=== PATIENT | male | born 1995 | race Native Hawaiian/Other Pacific Islander ===

== ENCOUNTER 2025-06-17 10:15 | Emergency (ER) | payer BC, SELFPAY ==
[2025-06-17] VITALS (7 sets, daily range): BP systolic 117–154; BP diastolic 69–89; PULSE 74–79; RESP 16–18; O2SAT 94–98
--- OUTSIDE RECORDS SUMMARY | 2025-06-17 10:25 | XMS_ITS | Encounter Summary ---
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
--- OUTSIDE RECORDS SUMMARY | 2025-06-17 10:25 | XMS_ITS | Encounter Summary ---
Author Organization [facility] Address [address] [place] [address] Care Team Providers Care Back Closer Name Role Phone Farooq Gore MD Primary Care Provider Encounter Details Date Type Department Care Team (Latest Contact Info) Description 08/22/2006 Outpatient Historical [facility] Medicine [address] [phone] Khushi Finn MD [facility] [place], [place] [id number] Contact Dermatitis and Other Eczema, due to Unspecified Cause (Primary Dx) Social History Tobacco Use Types Packs/Day Years Used Date Smoking Tobacco: Never Assessed Sex and Gender Information Value Date Recorded Sex Assigned at Not on file 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
--- OUTSIDE RECORDS SUMMARY | 2025-06-17 10:25 | XMS_ITS | Clinical Summary ---
Author Organization [facility] Address [address] [facility] Attn: Epic Prelude ADT THAO KNAPP [address] Care Team Providers Care Manager Desktop Name Role Phone Farooq Gore MD Primary Care Provider [phone] Allergies Active Allergy Reactions Criticality Noted Date Comments Amoxicillin-Pot Clavulanate Hives High 06/28/20 13 Medications No known medications Active Problems No known active problems Social History Tobacco Use Types Packs/Day Years Used Date Smoking Tobacco: Never Smokeless Tobacco: Current Alcohol Use Standard Drinks/Week Comments Not Asked 0 (1 standard drink = 0.6 oz pur e alcohol) Sex and Gender Information Value Date Recorded Sex Assigned at Not on file Legal Sex Male 2:05 AM IRRIGATOR VALVE PIPE Gender Identity Not on file Sexual Orientation Not on file Last Filed Vital Signs Vital Sign Reading Time Taken Comments Blood Pressure 125/86 10/05/2021 1:40 PM IRRIGATOR VALVE PIPE Pulse 88 10/05/2021 1:40 PM IRRIGATOR VALVE PIPE Temperature 36.8 C (98.2 F) 10/05/2021 1:40 PM IRRIGATOR VALVE PIPE Respiratory Rate 16 10/05/2021 1:40 PM IRRIGATOR VALVE PIPE Oxygen Saturation 98% 10/05/2021 1:40 PM IRRIGATOR VALVE PIPE Inhaled Oxygen Concentration - - Weight 120.2 kg (265 lb) 10/05/2021 1:40 PM IRRIGATOR VALVE PIPE Height 190.5 cm (6' 3 ) 10/05/2021 1:40 PM IRRIGATOR VALVE PIPE Body Mass Index 33.12 10/05/2021 1:40 PM IRRIGATOR VALVE PIPE Plan of Treatment Health Maintenance Due Date Last Done Comments HPV VACCINES (1 - Male 3-dose series) 2008 DTAP/TDAP/TD VACCINES (1 - Tdap) 2012 HEPATITIS B VACCINES (1 of 3 - 19+ 3-dose series) 06/04 INFLUENZA VACCINE (#1) 2025 Insurance OUT OF STATE Care Teams Manager Desktop Relationship Specialty Start Date End Date Farooq Gore MD [address] [place] [address] PCP - General Family Practice 10/11/10
--- OUTSIDE RECORDS SUMMARY | 2025-06-17 10:25 | XMS_ITS | Encounter Summary ---
Author Organization [facility] Address [address] [place] [address] Care Team Providers Care Wool Batting Worker Name Role Phone Farooq Gore MD Primary Care Provider Encounter Details Date Type Department Care Team (Latest Contact Info) Description 07/16/2006 Outpatient Historical [facility] Medicine [address] [phone] Luca Leary, SAND [employer] GRAVEL PLANT OPERATOR [address] [place] [address] Other and Unspecified Hyperlipidemia (Primary Dx) Social History Tobacco Use Types Packs/Day Years Used Date Smoking Tobacco: Never Assessed Sex and Gender Information Value Date Recorded Sex Assigned at Not on file 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
--- OUTSIDE RECORDS SUMMARY | 2025-06-17 10:25 | XMS_ITS | Clinical Summary ---
Author Organization [facility] Address [address] [place] [address] Care Team Providers Care Sports Psychologist Name Role Phone Farooq Gore MD Primary Care Provider Allergies Active Allergy Reactions Criticality Noted Date Comments Amoxicillin-Pot Clavulanate Hives High 06/28/20 13 Medications EPINEPHrine (EPIPEN) 0.3 mg/0.3 mL IM PnIj Inject 0.3 mL by intramuscular injection see administration instructions. 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 Gender Identity Not on file Sexual Orientation Not on file Last Filed Vital Signs Vital Sign Reading Time Taken Comments Blood Pressure 112/76 06/28/2013 10:04 AM CDT Pulse - - Temperature - - Respiratory Rate - - Oxygen Saturation - - Inhaled Oxygen Concentration - - Weight 118.8 kg (262 lb) 06/28/2013 10:04 AM CDT Height 182.9 cm (6') 06/28/2013 10:04 AM CDT Body Mass Index 35.53 06/28/2013 10:04 AM CDT Plan of Treatment Health Maintenance Due Date Last Done Comments HPV VACCINES (1 - Male 3-dose series) 2008 DTAP/TDAP/TD VACCINES (1 - Tdap) 2012 HEPATITIS B VACCINES (1 of 3 - 19+ 3-dose series) 06/04 INFLUENZA VACCINE (#1) 2025 Insurance BS Care Teams Sports Psychologist Relationship Specialty Start Date End Date Farooq Gore MD PCP - General Family Practice 10/11/10
--- OUTSIDE RECORDS SUMMARY | 2025-06-17 10:25 | XMS_ITS | Encounter Summary ---
Author Organization [facility] Address [address] [place] [address] Care Team Providers Care Creative Manager Name Role Phone Fraooq Gore MD Primary Care Provider Encounter Details Date Type Department Care Team (Latest Contact Info) Description 08/24/2007 Outpatient Historical [facility] Medicine [address], [place] [address] Farooq Gore MD [address] [place] [phone] Routine Medical Exam (Primary Dx) Social History Tobacco Use Types Packs/Day Years Used Date Smoking Tobacco: Never Assessed Sex and Gender Information Value Date Recorded Sex Assigned at Not on file 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
--- OUTSIDE RECORDS SUMMARY | 2025-06-17 10:25 | XMS_ITS | Encounter Summary ---
Author Organization [facility] Address [address] [place] [address] Care Team Providers Care Reconsignment Clerk Name Role Phone Farooq Gore MD Primary Care Provider Encounter Details Date Type Department Care Team (Latest Contact Info) Description 07/09/2006 Outpatient Historical [facility] Medicine [address] [phone] Luca Leary, ANESTHESIOLOGIST [address] [place] [address] Allergic Rhinitis, Cause Unspecified (Primary Dx) Social History Tobacco Use Types Packs/Day Years Used Date Smoking Tobacco: Never Assessed Sex and Gender Information Value Date Recorded Sex Assigned at Not on file 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
--- NOTE | 2025-06-17 10:39 | CT_ITS ---
WS: [id number] CT CERVICAL TRAUMA TECHNIQUE: Noncontrast CT of the cervical spine with coronal and sagittal reformatted images. CLINICAL INFORMATION: head and neck injury COMPARISON: None. DLP: 2180.[address] scans at [facility] use at least one of these dose optimization techniques: automated exposure control; mA and/or kV adjustment per patient size (includes targeted exams where dose is matched to clinical indication); or iterative reconstruction. FINDINGS: Straightening of the normal cervical lordosis. Normal craniocervical junction. Normal C1-C2 articulation. Dens is normal in appearance. Normal occipital condyles. No high-grade spinal canal narrowing. Normal C1 ring. No evidence of acute fracture or dislocation. Normal prevertebral soft tissues. Mastoids air cells are well aerated. CT/CT cervical spin wo con* [id number] IMPRESSION: No evidence of acute fracture or dislocation. Notified HUBER James at 06/17/2025 11:[address] findings also jane feng
--- NOTE | 2025-06-17 10:39 | CT_ITS ---
WS: [id number] CT HEAD TECHNIQUE: Noncontrast CT of the head obtained from the skullbase to the vertex. CLINICAL INFORMATION: head and neck injury COMPARISON: None. DLP: 2180.[address] scans at [facility] use at least one of these dose optimization techniques: automated exposure control; mA and/or kV adjustment per patient size (includes targeted exams where dose is matched to clinical indication); or iterative reconstruction. FINDINGS: No evidence of intracranial hemorrhage or mass effect. Ventricular system and basal cisterns are patent. No extra-axial fluid collections. No evidence of mass or mass effect. Normal coker-white differentiation. Comminuted fracture LEFT superior orbital rim with communication to the LEFT frontal sinus with associated fluid and blood products. Additional depressed fracture of the RIGHT frontal sinus. Soft tissue edema overlying the LEFT greater than RIGHT frontal sinuses. . CT/CT head wo con* [id number] IMPRESSION: 1. No evidence of intracranial hemorrhage or mass effect. 2. Comminuted fracture of the LEFT superior orbital rim with communication to the LEFT frontal sinus with fluid and blood products in the frontal sinus and L EFT ethmoid air cells. 3. Additional bony deformity of the RIGHT frontal sinus suspicious for additio nal nondisplaced fractures with frontal sinus communication.
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
[2025-06-17 11:09] LABS: Hematocrit 43.5 % (37-53); Hemoglobin 15.40 g/dL (11.27-16.99); Mean Corpuscular HGB Conc 35.4 g/dL (30-55); Mean Corpuscular Hemoglobin 30.9 pg (27-33); Mean Corpuscular Volume 87.2 fl (82-101); Nucleated Red Blood Cells % 0 %; Platelet Count 177 10^3/cmm (157-399); Red Blood Count 4.99 10^6/uL (3.85-5.65); White Blood Count 7.89 10^3/uL (3.29-11.43)
[2025-06-17] MEDS: morphine 4 mg/mL SDV 1 mL IVP ×2 (11:13→12:12)
[2025-06-17] MEDS: ondansetron 2 mg/ML SDV 2 mL 4 MG IVP (11:13)
--- NOTE | 2025-06-17 11:16 | CT_ITS ---
WS: [id number] CT FACIAL BONES TECHNIQUE: Noncontrast facial bones with coronal and sagittal reformatted images. CLINICAL INFORMATION: facial injury COMPARISON: None. DLP: 658.[address] scans at [facility] use at least one of these dose optimization techniques: automated exposure control; mA and/or kV adjustment per patient size (includes targeted exams where dose is matched to clinical indication); or iterative reconstruction. FINDINGS: Comminuted slightly depressed fracture of the superior orbital rim. This communicates into the LEFT frontal sinus with associated blood products. LEFT lateral orbit appears intact. LEFT inferior orbit appears intact. Orbital rim fracture slightly abuts the superior rectus but no evidence of entrapment. Tiny amount of herniated intraorbital fat into the LEFT frontal sinus. No evidence of retrobulbar hematoma. Tiny bony fragment in the superior orbit along the superior oblique. Small bony fragment measures 2.6 mm. Additional depressed fractures of the RIGHT frontal sinus. Depressed and slightly comminuted fractures involving the LEFT nasal bones. Fracture of the frontal process LEFT maxilla. RIGHT nasal bones appear intact. Pterygoid plates appear intact. Normal RIGHT orbit. Normal lamina papyracea. Both zygoma appear intact intact. Pterygoid plates appear intact. No evidence of mandibular fracture or dislocation. Normal mastoid air cells. CT/CT facial bones wo con* [id number] IMPRESSION: 1. Comminuted/depressed fractures involving the LEFT superior orbital rim exte nding into the LEFT frontal sinus with blood products. 2. Tiny displaced bony fragment extending into the anterior orbit along the sheriff perior oblique. 3. Small amount of herniated LEFT intraorbital fat into the frontal sinus alth ough no evidence of entrapment. 4. Slightly depressed fractures involving the RIGHT frontal sinus. 5. LEFT nasal bone fractures with mild depression.
[2025-06-17 11:33] LABS: Alanine Aminotransferase 17 U/L (0-41); Albumin Level 4.4 g/dL (3.5-5.2); Alkaline Phosphatase 71 U/L (40-130); Anion Gap 14.0 (5-19); Aspartate Amino Transferase 16 U/L (0-40); Blood Urea Nitrogen 10 mg/dL (6-20); Calcium 8.7 mg/dL (8.5-10.5); Carbon Dioxide 23 mmol/L (22-29); Chloride 107 mmol/L (98-107); Creatinine Clr Calc Pharmacy 163.7732; Globulin 2.9 g/dL (1.3-4.6); Glucose 95 mg/dL (65-115); Osmolality Calculated 289 mOsm/kg (285-295); Potassium 4.0 mmol/L (3.5-5.1); Sodium 140 mmol/L (136-145); Total Protein 7.3 g/dL (6.6-8.7)
[2025-06-17 11:34] LABS: Lactic Sepsis W/Reflex 0.7 mmol/L (0.5-2.2)
--- NOTE | 2025-06-17 11:42 | PC.PHAR ---
Pt states he takes all his maintenance medications at night.
[2025-06-17 12:01] LABS: Glucose Urine UA Negative (Normal); Nitrate Urine Negative (Negative); Specific Gravity, Urine 1.025 (1.005-1.030)
[2025-06-17] MEDS: cefTRIAXone 1,000 mg SDV 1000 MG IVP (12:12)
[2025-06-17 12:39] LABS: Add Urine Microscopic? YES; UA Manual Slide Review YES; UA Slide Review UA Slide Review Perf
[2025-06-17] MEDS: mupirocin oint 22 gm 1 APPLIC TOPICAL (13:57)
[2025-06-17] MEDS: oxyCODONE-APAP 10-325 mg Tablet 1 TAB PO (14:04)
== END 2025-06-17 14:05 | disposition home or self-care (01) ==
PROVIDERS: Emergency Provider Physician Assistant; Family Provider Nurse Practitioner Family; PCP Nurse Practitioner Family
DX: S02.19XA Other fracture of base of skull, initial encounter for closed fracture (principal); S02.85XA Fracture of orbit, unspecified, initial encounter for closed fracture; S61.411A Laceration without foreign body of right hand, initial encounter; S01.81XA Laceration without foreign body of other part of head, initial encounter; V28.09XA Other motorcycle driver injured in noncollision transport accident in nontraffic accident, initial encounter
CPT/HCPCS: 12002; 12053; 36415; 70450; 70486; 72125; 80053; 81001; 83605; 85025; 96374; 96375; 96376; 99285; 99291; J0696; J1885; J2270; J2405; J9999